=== PATIENT | female | born 1940 | race Caucasian/White ===

== ENCOUNTER 2020-11-10 16:03 | Emergency (ER) | payer MEDICARE, OTHER ==
[~2020-11-10 16:03] MED LIST: ACETAMINOPHEN325 MG PO; COLACE100 MG PO; CYCLOBENZAPRINE10 MG PO; FERROUS SULFAT325 M2 PO; FUROSEMIDE40 MG PO; IPRAT-ALBUT 0.5-3 ML INH; IPRAT-ALBUT 0.5-3 ML NEB; LASIX20 MG PO; LIPITOR20 MG PO; MEDROL DOSEPAK 24 MG PO; NEURONTIN 400400 MG PO; NORCO 5-325 TA1 EACH PO; OMNICEF 300 MG300 MG PO; PANTOPRAZOLE SO40 MG PO; POTASSIUM CHLO20 ME2 PO; PROVENTIL HFA6.7 GM INH; SPIRIVA HANDIH18 MCG INH; SYMBICORT 160-1 INHA INH; TYLENOL 500 MG500 MG PO; VISTARIL25 MG PO; VITAMIN D31250 MCG PO; ZITHROMAX500 MG PO; ZOLOFT100 MG PO
== END 2020-11-10 18:17 | disposition home or self-care (01) ==
LOC: ER1 16:03
DX: S62.306A Unspecified fracture of fifth metacarpal bone, right hand, initial encounter for closed fracture (principal); J44.9 Chronic obstructive pulmonary disease, unspecified; W06.XXXA Fall from bed, initial encounter
CPT/HCPCS: 29125; 73110; 73130; 99283

== ENCOUNTER 2021-10-12 12:07 | Inpatient (IN) | payer MEDICARE ==
[~2021-10-12] VITALS: Ht 170.2 cm; Wt 111.3 kg
[~2021-10-12 12:07] MED LIST changes: -NEURONTIN 400400 MG PO; +NEURONTIN400 MG PO; +VITAMIN D21250 MCG PO; -VITAMIN D31250 MCG PO
[2021-10-12 13:02] LABS: HEMOGLOBIN 13.2 gm/dl (12.3-15.3); RED BLOOD COUNT 4.18 M/UL (4.00-5.10); WHITE BLOOD COUNT 13.6 K/UL (4.5-11.0)
[2021-10-12 13:36] LABS: BUN/CREATININE RATIO 17 (0-10)
[2021-10-12] MEDS ORDERED: METHOCARBAMOL500 MG PO (18:08)
[2021-10-12] MEDS ORDERED: ATORVASTATIN CA20 MG PO (18:10)
[2021-10-12] MEDS ORDERED: PANTOPRAZOLE SO20 MG PO (18:11)
[2021-10-12] MEDS ORDERED: ALPRAZOLAM1 MG PO (18:13)
[2021-10-12] MEDS ORDERED: FEROSUL325 MG PO (18:14)
[2021-10-12] MEDS ORDERED: FUROSEMIDE40 MG PO (18:16)
[2021-10-12] MEDS ORDERED: POTASSIUM CHLO20 ME2 PO (18:17)
[2021-10-12] MEDS ORDERED: VITAMIN C1000 MG PO (18:19)
[2021-10-12] MEDS ORDERED: VITAMIN B-121000 MCG PO (18:20)
--- NOTE | 2021-10-12 23:05 | NUR ---
PATIENTS SISTER LEFT BEFORE THE ADMISSION PART 1 COULD BE DONE, SHE STATED SHE WOULD BE BACK SOON. IT HAS BEEN OVER AN HOUR AND THE SISTER HAS NOT RETURNED. PATIENT IS UNABLE TO RECALL INFORMATION NEEDED TO DO THE ADMISSION. WILL UPDATE STATUS CHANGES.
[2021-10-13 03:17] LABS: HEMOGLOBIN 12.1 gm/dl (12.3-15.3); RED BLOOD COUNT 3.88 M/UL (4.00-5.10)
[2021-10-13 03:18] LABS: WHITE BLOOD COUNT 7.5 K/UL (4.5-11.0)
[2021-10-14 06:29] LABS: HEMOGLOBIN 13.4 gm/dl (12.3-15.3)
[2021-10-14 06:30] LABS: RED BLOOD COUNT 4.35 M/UL (4.00-5.10); WHITE BLOOD COUNT 9.9 K/UL (4.5-11.0)
--- NOTE | 2021-10-14 08:15 | NUR ---
DURING MEDICATION PASS PT NOTED TO HAVE HER OXYGEN OFF AND SATS 70'S. REAPPLIED HER OXYGEN BUT HER HEART RATE WAS 172 AFIB WITH RVR. PT SEEMS BREATHY. DAUGHTER ASKED AND DENIES PT HAS EVER HAD A HISTORY OF AFIB. DR PERRY NOTIFIED NEW ORDERS NOTED AND 0.25MG OF DIGOXIN GIVEN IV. RATE SLOWED TO 140'S ORDERED TO TRANSFER TO [facility]. PT MOVED AFTER REPORT GIVEN.
[2021-10-15 01:57] LABS: HEMOGLOBIN 12.3 gm/dl (12.3-15.3); RED BLOOD COUNT 3.94 M/UL (4.00-5.10)
[2021-10-15 02:00] LABS: WHITE BLOOD COUNT 7.3 K/UL (4.5-11.0)
[2021-10-16 11:57] LABS: BUN/CREATININE RATIO 17 (0-10)
[2021-10-17 02:17] LABS: HEMOGLOBIN 12.3 gm/dl (12.3-15.3); RED BLOOD COUNT 3.95 M/UL (4.00-5.10); WHITE BLOOD COUNT 6.6 K/UL (4.5-11.0)
[2021-10-17 02:33] LABS: BUN/CREATININE RATIO 17 (0-10)
[2021-10-18 01:36] LABS: HEMOGLOBIN 12.5 gm/dl (12.3-15.3); RED BLOOD COUNT 4.02 M/UL (4.00-5.10)
[2021-10-18 01:40] LABS: WHITE BLOOD COUNT 4.7 K/UL (4.5-11.0)
[2021-10-18 02:04] LABS: BUN/CREATININE RATIO 17 (0-10)
--- NOTE | 2021-10-18 03:16 | NUR ---
RN TOLD THE PATIENT SHE WAS GOING TO BE TURNED. PATIENT SAID SHE DIDNT WANT TO BECAUSE IT HURT. RN OFFERED TO TURN AFTER PAIN MEDICATION WAS ADMINISTERED. PT REFUSED. RN PROCEDED TO EDUCATE THE PATIENT ON THE RISK OF A PRESSURE INJURY. PATIENT STILL REFUSED.
[2021-10-19 02:10] LABS: HEMOGLOBIN 12.7 gm/dl (12.3-15.3); RED BLOOD COUNT 4.05 M/UL (4.00-5.10); WHITE BLOOD COUNT 4.4 K/UL (4.5-11.0)
[2021-10-19 03:00] LABS: BUN/CREATININE RATIO 18 (0-10)
[2021-10-19] MEDS ORDERED: AMIODARONE HCL200 MG PO (12:15)
[2021-10-19] MEDS ORDERED: AMOX TR-K CLV1 EAC4 PO (12:20)
[2021-10-19] MEDS ORDERED: BACTRIM DS TAB1 EACH PO (12:20)
[2021-10-19] MEDS ORDERED: ROXICODONE TAB 55 MG PO (12:26)
== END 2021-10-19 13:19 | disposition home or self-care (01) | DRG 551 ==
LOC: ER1 12:07 → M/S 17:07 → CDU 17:07 → PROG CARE 20:51 → M/S 20:52 → PROG CARE 10-14 10:05
PROVIDERS: Internal Medicine; Physician Assistant; ADMIT Internal Medicine
PROC: B24BZZZ Ultrasonography of Heart with Aorta (ICD-10-PCS; principal; 2021-10-14)
DX: M51.36 Other intervertebral disc degeneration, lumbar region (principal); J96.21 Acute and chronic respiratory failure with hypoxia; J69.0 Pneumonitis due to inhalation of food and vomit; Z20.822 Contact with and (suspected) exposure to COVID-19; C41.4 Malignant neoplasm of pelvic bones, sacrum and coccyx; F11.20 Opioid dependence, uncomplicated; N30.00 Acute cystitis without hematuria; J35.9 Chronic disease of tonsils and adenoids, unspecified; J44.9 Chronic obstructive pulmonary disease, unspecified; F03.90 Unspecified dementia, unspecified severity, without behavioral disturbance, psychotic disturbance, mood disturbance, and anxiety; N18.30 Chronic kidney disease, stage 3 unspecified; M89.8X8 Other specified disorders of bone, other site; I12.9 Hypertensive chronic kidney disease with stage 1 through stage 4 chronic kidney disease, or unspecified chronic kidney disease; E55.9 Vitamin D deficiency, unspecified; D50.9 Iron deficiency anemia, unspecified; D63.1 Anemia in chronic kidney disease; E66.9 Obesity, unspecified; K59.00 Constipation, unspecified; G89.29 Other chronic pain; M54.9 Dorsalgia, unspecified; I44.7 Left bundle-branch block, unspecified; B96.1 Klebsiella pneumoniae [K. pneumoniae] as the cause of diseases classified elsewhere; I48.91 Unspecified atrial fibrillation; M41.86 Other forms of scoliosis, lumbar region; Z79.01 Long term (current) use of anticoagulants; Z86.73 Personal history of transient ischemic attack (TIA), and cerebral infarction without residual deficits; Z98.890 Other specified postprocedural states; Z88.8 Allergy status to other drugs, medicaments and biological substances; Z82.49 Family history of ischemic heart disease and other diseases of the circulatory system; Z68.38 Body mass index [BMI] 38.0-38.9, adult
CPT/HCPCS: ECHO; 36415; 36600; 70450; 71045; 72131; 72192; 80048; 80053; 80307; 81001; 82550; 82553; 82607; 82803; 83735; 83880; 84439; 84443; 84484; 85025; 85027; 85652; 87077; 87081; 87086; 87186; 92610; 93005; 93306; 94640; 94664; 94760; 96374; 96375; 97162; 97530; 97530-GP-CQ; 99285; G0378; G0480; J0692; J0696; J1160; J1650; J2270; J2405

== ENCOUNTER → 2022-01-11 | Outpatient (CLI) | payer MEDICARE ==
[~2022-01-11] MED LIST changes: +ALPRAZOLAM1 MG PO; +AMIODARONE HCL200 MG PO; +AMOX TR-K CLV1 EAC4 PO; +ATORVASTATIN CA20 MG PO; +BACTRIM DS TAB1 EACH PO; +FEROSUL325 MG PO; +METHOCARBAMOL500 MG PO; +PANTOPRAZOLE SO20 MG PO; +ROXICODONE TAB 55 MG PO; +VITAMIN B-121000 MCG PO; +VITAMIN C1000 MG PO
== END ==
LOC: KOH-I 10:30
DX: D64.9 Anemia, unspecified (principal); N83.8 Other noninflammatory disorders of ovary, fallopian tube and broad ligament
CPT/HCPCS: 72192